=== PATIENT | male | born 1935 | race Caucasian/White ===

== ENCOUNTER → 2020-01-11 | Outpatient (CLI) | payer MEDICARE, BC ==
[~2020-01-11] MED LIST: ASPI325T6 PO; ASPIRIN E.C. 8181 MG PO; CRESTOR20 MG PO; EFFIENT10 MG PO; NITROSTAT0.4 MG/TAB SL; OMEGA 31000 MG PO
== END ==
LOC: COL.RAD 11:00
DX: S06.9X9S Unspecified intracranial injury with loss of consciousness of unspecified duration, sequela (principal); G47.19 Other hypersomnia; D72.819 Decreased white blood cell count, unspecified

== ENCOUNTER → 2020-02-25 | Outpatient (CLI) | payer MEDICARE, BC | LOC: COL.CARD 10:44 | DX: S06.9X9S Unspecified intracranial injury with loss of consciousness of unspecified duration, sequela (principal); R42 Dizziness and giddiness; G47.19 Other hypersomnia; R41.89 Other symptoms and signs involving cognitive functions and awareness; D72.819 Decreased white blood cell count, unspecified; R53.83 Other fatigue ==